=== PATIENT | female | born 1970 ===

== ENCOUNTER 2018-08-07 06:07 | Observation (INO) ==
--- NOTE | 2018-08-07 06:11 | Emergency Department Note ---
Disposition Clinical Impression: Chest pain Qualifiers: Chest pain type: unspecified Qualified Code(s): R07.9 - Chest pain, unspecified Disposition: Admitted As Inpatient Condition: Good Time of Disposition: 06:39 Chest Pain HPI - General Chief Complaint: ED Chest Pain Stated Complaint: CP Time Seen by Provider: 08/07/18 06:11 Source: patient Mode of arrival: ambulatory Limitations: no limitations Vital Signs Reviewed: Yes Nursing Notes Reviewed: Yes - History of Present Illness HPI Narrative: Patient is a 47-year-old female with past medical history of hypertension. Presents today due to concern for chest discomfort. She states that over the past week, she has had intermittent chest discomfort, described as a pressure in the center of her chest that feels like a squeezing sensation. She also has occasional left-sided chest discomfort described in the same way. She states that this pain usually lasts for minutes to hours at a time and goes away. It worsens with exertion. Does not worsen with deep inspiration. Denies any other fevers, sweating, vomiting, diarrhea, abdominal pain, dysuria, hematuria. She does admit to some mild nausea when she has these episodes. She states that she woke up this morning at 4 AM, had chest pain when awakening. She states that it was a 10 out of 10 on onset and is now a 6 out of 10. She took one 81 mg aspirin prior to arrival. Did not take any additional medication. She did state that it was worsening when she was walking. Denies any previous [place] or stent placement. Denies any long car rides, control use, any calf swelling or pain, previous DVT or PE. Severity scale (1-10): 6 - Related Data Allergies Allergy/AdvReac Type Severity Reaction Status Date / Time No Known Allergies Allergy Verified 08/07/18 06:10 All systems ED: reviewed and negative except as stated. Constitutional: Denies: fever Cardiovascular: Reports: chest pain Respiratory: Reports: dyspnea. Denies: cough, sputum production Gastrointestinal: Reports: nausea. Denies: abdominal pain, vomiting, diarrhea, constipation Genitourinary: Denies: urgency, dysuria Integumentary: Denies: rash Neurological: Denies: headache, weakness, numbness, paresthesias Chest Pain PMH - Past Medical History Medical history: Reports: hypertension Psychiatric history: Reports: no psych history - Social History Smoking Status: Never smoker Alcohol use: Reports: none Drug use: Reports: unknown Physical Exam - General Limitations: no limitations General appearance: alert, in no apparent distress - Head Head exam: atraumatic, normocephalic, normal inspection - Eye Eye exam: Present: normal appearance, PERRL, EOMI - ENT ENT exam: normal exam, normal oropharynx, mucous membranes moist - Neck Neck exam: Present: normal inspection, full ROM, trachea midline - Chest Chest inspection: Present: normal inspection, symmetric chest wall rise. Absent: tenderness, rash - Respiratory Respiratory exam: Present: normal lung sounds bilaterally. Absent: respiratory distress, stridor, accessory muscle use - Cardiovascular Cardiovascular exam: Present: regular rate, normal rhythm, normal heart sounds - Abdominal Exam Abdominal exam: Present: soft, Non-Tender. Absent: tenderness, distention, guarding, rebound, rigidity - Extremities Exam Extremities exam: Present: normal inspection, full ROM. Absent: tenderness, pedal edema - Neurological Exam Neurological exam: Present: alert, oriented X3 - Psychiatric Psychiatric exam: Present: normal affect, normal mood - Skin Skin exam: Present: warm, dry, intact, normal color Course Course Narrative: Patient was mildly hypertensive on presentation. Otherwise, the rest of the vitals within normal limits. Physical exam benign. She had no reproducible chest discomfort on exam, no rashes, no abdominal pain. Her EKG shows sinus rhythm with no acute ST elevation or depression. There is a T-wave inversion in lead 3. No previous EKG for comparison. With risk factors, moderately concerning story, and T-wave inversion on EKG, patient has a heart score for assuming the troponin is negative. Patient just had pain that started around 2 hours ago. We will cover the patient with the rest of the aspirin (3 tabs) and give fentanyl for pain control. We will obtain chest x-ray, troponin level. Even if workup is negative, we will admit for trending troponins. Will sign out to day team for follow up on labs and final disposition, signed out to Dr. Pinto and Dr. Garrett. Vital Signs Temperature 97.7 F 08/07/18 06:08 Pulse Rate 94 08/07/18 06:08 Respiratory Rate 20 08/07/18 06:08 Blood Pressure 162/90 08/07/18 06:08 O2 Sat by Pulse Oximetry 98 08/07/18 06:08 Temperature 97.7 F 08/07/18 06:08 Pulse Rate 94 08/07/18 06:08 Respiratory Rate 20 08/07/18 06:08 Blood Pressure 162/90 08/07/18 06:08 O2 Sat by Pulse Oximetry 98 08/07/18 06:08 Oxygen Delivery Oxygen Delivery Room Air Chest Pain - MDM Narrative Medical decision making narrative: Patient was mildly hypertensive on presentation. Otherwise, the rest of the vitals within normal limits. Physical exam benign. She had no reproducible chest discomfort on exam, no rashes, no abdominal pain. Her EKG shows sinus rhythm with no acute ST elevation or depression. There is a T-wave inversion in lead 3. No previous EKG for comparison. With risk factors, moderately concerning story, and T-wave inversion on EKG, patient has a heart score for assuming the troponin is negative. Patient just had pain that started around 2 hours ago. We will cover the patient with the rest of the aspirin (3 tabs) and give fentanyl for pain control. We will obtain chest x-ray, troponin level. Even if workup is negative, we will admit for trending troponins. Will sign out to day team for follow up on labs and final disposition, signed out to Dr. Pinto and Dr. Garrett. - Medical Records Medical records reviewed: Yes I reviewed the patient's medical records. - Lab Data Lab results reviewed: Yes I reviewed the patient's lab results. Result diagrams: 08/07/18 06:28 08/07/18 08:22 - Radiology Data Radiology results reviewed: Yes I reviewed the patient's radiology results. - EKG Data EKG attestation: Yes I reviewed and interpreted this EKG. EKG results narrative: 08/07/2018 at 06:18. Sinus rhythm. Rate 88. TX 157. QRS 99. QTc 441. Normal axis. No acute ST elevation or depression. T-wave inversion in lead 3. Heart Score - Score History: Moderately Suspicious EKG: Non Specific repolarisation Disturbance Age: 45-65 Risk Factors: 1-2 risk factors Troponin: Less than normal limit HEART Score Total: 4 S.B.A.R. - S.B.A.R. Situation: Demographics, MOA Background: Presenting Complaint, Relevant PMH, Meds, & Allergies Assessment: Vital Signs, Course and respsone to treatment, Exam Concerns, Patient/Family Expectation, Pertinant Lab Results Recommendation: Barrier(s) to disposition, Recommendation based on pending studies, treatments, or consults S.B.A.R. Report Given to: Dr. Garrett, Dr. Pinto Attestation Statement - Attestation Attestation: Dr. Darnell note: Patient was seen in conjunction with resident Dr. Cordova. Please see his charting for complete documentation. Assessment [id number] time with the patient and I agree with patient's treatment and disposition. Chest pain onset overnight which woke her up around 4 AM from sleep. Described as pressure. Denies such symptoms prior. Does admit to a lot of recent stress and anxiety due to the illness of a family member who is currently hospitalized. Pain-free at the time of my evaluation. EKG and troponin are unremarkable. Signed out to the day shift attending Dr. Vangie Garrett at 7 AM with pending admission and completely results.
[2018-08-07] MEDS ORDERED: Aspirin 81 MG TAB.CHEW PO ONE (06:22)
[2018-08-07] MEDS: *HR* FentaNYL (PF) 100 MCG/2 ML VIAL IVP ONE ×2 (06:41→13:56)
[2018-08-07] MEDS: Aspirin 81 MG TAB.CHEW PO ONE (06:41)
[2018-08-07 06:47] LABS: Basophils % 0.3 %; Eosinophils # 0.1 K/mcL (0.0-0.6); Hematocrit 40.7 % (35.3-44.9); Hemoglobin 13.5 g/dL (11.5-15.4); Immature Granulocytes % 0.2 % (0-4); Lymphocytes # 2.4 K/mcL (0.6-4.6); Lymphocytes % 26.5 %; Mean Corpuscular HGB Conc 33.2 g/dL (31.6-35.5); Mean Corpuscular Hemoglobin 31.8 pg (28.0-33.3); Mean Corpuscular Volume 95.8 fL (83.0-100.0); Mean Platelet Volume 8.8 fL (9.4-12.4); Monocytes # 0.7 K/mcL (0.0-1.3); Monocytes % 7.7 %; Neutrophils # 5.7 K/mcL (1.6-8.9); Platelet Count 385 K/mcL (140-400); Red Blood Count 4.25 M/mcL (3.82-4.97); Red Cell Distribution Width 13.1 % (11.5-14.5); Segmented Neutrophils % 64.3 %
[2018-08-07 07:00] LABS: Activated Partial Thrombo Time 31.6 Seconds (26.0-36.0)
--- NOTE | 2018-08-07 07:38 | Emergency Department Note ---
Disposition Clinical Impression: Chest pain Disposition: Admitted As Inpatient Condition: Good Time of Disposition: 12:00 General Adult HPI - General Chief complaint: ED Chest Pain Stated complaint: CP Time Seen by Provider: 08/07/18 06:11 Source: patient Mode of arrival: ambulatory Limitations: no limitations Nursing Notes Reviewed: Yes Vital Signs Reviewed: Yes - History of Present Illness Onset (ago): hour(s) Location: chest Pain Severity: moderate Pain Scale: 6 - Related Data Allergies Allergy/AdvReac Type Severity Reaction Status Date / Time No Known Allergies Allergy Verified 08/07/18 06:10 Constitutional: Denies: fever Cardiovascular: Reports: chest pain Respiratory: Reports: dyspnea. Denies: cough, sputum production Gastrointestinal: Reports: nausea. Denies: abdominal pain, vomiting, diarrhea, constipation Genitourinary: Denies: urgency, dysuria Integumentary: Denies: rash Neurological: Denies: headache, weakness, numbness, paresthesias Past Medical History - Past Medical History Medical history: Reports: hypertension Psychiatric history: Reports: no psych history - Social History Smoking Status: Never smoker Alcohol use: Reports: none Drug use: Reports: unknown Physical Exam - General Limitations: no limitations General appearance: alert, in no apparent distress Course Vital Signs Temperature 97.7 F 08/07/18 06:08 Pulse Rate 94 08/07/18 06:08 Respiratory Rate 20 08/07/18 06:08 Blood Pressure 162/90 08/07/18 06:08 O2 Sat by Pulse Oximetry 98 08/07/18 06:08 Temperature 97.7 F 08/07/18 06:08 Pulse Rate 88 08/07/18 09:23 Respiratory Rate 16 08/07/18 09:23 Blood Pressure 115/78 08/07/18 09:23 O2 Sat by Pulse Oximetry 98 08/07/18 09:23 Oxygen Delivery Oxygen Delivery Room Air Medical Decision Making - MDM Narrative Medical decision making narrative: Patient was signed out to me by Dr. Cordova as well as Dr. Darnell, patient brought in to the ER for chest pain symptoms, described to be a middle of the chest with intermittent radiation into the left arm. Symptoms are exertional. No medical history of ACS in the past, has has not had an echocardiogram or stress test in the past. While here in the ER, patient is remained stable. BMP, CBC as well as troponin of all been within normal limits. EKG shows no acute ischemic changes. Patient was given a total of 3 aspirin here in our ER, as she has had one aspirin prior to arrival, declined further pain medication. Patient has heart score 4. While here patient, we did describe lightheaded dizziness whenever she extends her neck, as well as whenever she flexes or turns her head to the left and right, she states she becomes very dizzy and lightheaded. This is been ongoing for the past week during when she has chest pain. Given this information, the patient will also receive a CTA of the head and neck. CT of the head and neck are unremarkable, no sign of vertebral aneurysm or dissection. Did discuss admission with the patient, she agrees with admission for ACS rule out at this point in time. She will be admitted for further observation and tr eatment. I will call hospitalist at this point in time. - Medical Records Medical records reviewed: Yes I reviewed the patient's medical records. - Lab Data Lab results reviewed: Yes I reviewed the patient's lab results. Result diagrams: 08/07/18 06:28 08/07/18 08:22 Lab Results 08/07/18 08/07/18 08/07/18 Range/Units 06:28 06:28 06:28 WBC 8.9 (4.3-11.1) K/mcL RBC 4.25 (3.82-4.97) M/mcL Hgb 13.5 (11.5-15.4) g/dL Hct 40.7 (35.3-44.9) % MCV 95.8 (83.0-100.0) fL MCH 31.8 (28.0-33.3) pg MCHC 33.2 (31.6-35.5) g/dL RDW 13.1 (11.5-14.5) % Plt Count 385 (140-400) K/mcL MPV 8.8 L (9.4-12.4) fL Immature Gran % 0.2 (0-4) % Seg Neutrophils % 64.3 % Lymphocytes % 26.5 % Monocytes % 7.7 % Eosinophils % 1.0 % Basophils % 0.3 % Neutrophils # 5.7 (1.6-8.9) K/mcL Lymphocytes # 2.4 (0.6-4.6) K/mcL Monocytes # 0.7 (0.0-1.3) K/mcL Eosinophils # 0.1 (0.0-0.6) K/mcL Basophils # 0.0 (0.0-0.2) K/mcL PT 11.0 (9.4-12.1) Seconds INR 1.0 APTT 31.6 (26.0-36.0) Seconds Sodium Cancelled Potassium Cancelled Chloride Cancelled Carbon Dioxide Cancelled BUN Cancelled Creatinine Cancelled Est GFR ( Amer) Cancelled Est GFR (Non-Af Amer) Cancelled BUN/Creatinine Ratio Cancelled Glucose Cancelled Calculated Osmolality Cancelled Calcium Cancelled Troponin I < 0.03 (< 0.04) ng/mL 08/07/18 Range/Units 08:22 WBC (4.3-11.1) K/mcL RBC (3.82-4.97) M/mcL Hgb (11.5-15.4) g/dL Hct (35.3-44.9) % MCV (83.0-100.0) fL MCH (28.0-33.3) pg MCHC (31.6-35.5) g/dL RDW (11.5-14.5) % Plt Count (140-400) K/mcL MPV (9.4-12.4) fL Immature Gran % (0-4) % Seg Neutrophils % % Lymphocytes % % Monocytes % % Eosinophils % % Basophils % % Neutrophils # (1.6-8.9) K/mcL Lymphocytes # (0.6-4.6) K/mcL Monocytes # (0.0-1.3) K/mcL Eosinophils # (0.0-0.6) K/mcL Basophils # (0.0-0.2) K/mcL PT (9.4-12.1) Seconds INR APTT (26.0-36.0) Seconds Sodium 141 Potassium 4.1 Chloride 106 Carbon Dioxide 28 BUN 15 Creatinine 0.68 Est GFR ( Amer) > 60 Est GFR (Non-Af Amer) > 60 BUN/Creatinine Ratio 22 Glucose 107 H Calculated Osmolality 293 Calcium 9.3 Troponin I (< 0.04) ng/mL - Radiology Data Radiology results reviewed: Yes I reviewed the patient's radiology results. Chest X-Ray 08/07/18 06:11 IMPRESSION: No acute cardiopulmonary disease or significant interval change from prior study 12/25/2012 D/ / Tru Sepulveda / Tru Sepulveda Interpreting Provider: Tru Sepulveda Sariah - Sariah Situation: Demographics, MOA Background: Presenting Complaint, Relevant PMH, Meds, & Allergies Assessment: Vital Signs, Course and respsone to treatment, Exam Concerns, Patient/Family Expectation, Pertinant Lab Results, Outstanding Labs Recommendation: Barrier(s) to disposition, Recommendation based on pending studies, treatments, or consults [facility] Report Given to: Dr. Bennie Rolle Repor Time: 12:00 (accepted) Attestation Statement - Attestation Attestation: Dr. Darnell note: Patient was seen in conjunction with resident Dr. Cordova. Please see his charting for complete documentation. Assessment [id number] time with the patient and I agree with patient's treatment and disposition. Patient had intermittent chest pain overnight which is a new symptom for her. Described as generalized pressure. No prior cardiac testing. Initial EKG and troponin are unremarkable. Pain was improved in the ER. Results pending at the time of departure from shift at 7 AM she will be signed out to the daytime attending jarrett Vences See
[2018-08-07 08:52] LABS: BUN/Creatinine Ratio 22 (6-26); Blood Urea Nitrogen 15 mg/dL (6-20); Calcium 9.3 mg/dL (8.6-10.3); Carbon Dioxide 28 mEq/L (23-29); Chloride 106 mEq/L (98-107); Glucose 107 mg/dL (70-105); Osmolality,Calculated 293 (280-300); Potassium 4.1 mEq/L (3.5-5.1); Sodium 141 mEq/L (136-145); eGFR For Non-African Americans > 60 (> 60)
--- NOTE | 2018-08-07 09:18 | Emergency Department Note ---
Disposition Clinical Impression: Chest pain Qualifiers: Chest pain type: unspecified Qualified Code(s): R07.9 - Chest pain, unspecified Disposition: Admitted As Inpatient Condition: Good Instructions: Chest Pain (ED) Referrals: NONE,PCP [Primary Care Provider] - Forms: ED Satisfaction Letter General Adult HPI - General Chief complaint: ED Chest Pain Stated complaint: CP Time Seen by Provider: 08/07/18 06:11 Source: patient Mode of arrival: ambulatory Limitations: no limitations - History of Present Illness Pain Scale: 6 - Related Data Allergies Allergy/AdvReac Type Severity Reaction Status Date / Time No Known Allergies Allergy Verified 08/07/18 06:10 Constitutional: Denies: fever Cardiovascular: Reports: chest pain Respiratory: Reports: dyspnea. Denies: cough, sputum production Gastrointestinal: Reports: nausea. Denies: abdominal pain, vomiting, diarrhea, constipation Genitourinary: Denies: urgency, dysuria Integumentary: Denies: rash Neurological: Denies: headache, weakness, numbness, paresthesias Past Medical History - Past Medical History Medical history: Reports: hypertension Psychiatric history: Reports: no psych history - Social History Smoking Status: Never smoker Alcohol use: Reports: none Drug use: Reports: unknown Physical Exam - General Limitations: no limitations General appearance: alert, in no apparent distress Course Vital Signs Temperature 97.7 F 08/07/18 06:08 Pulse Rate 94 08/07/18 06:08 Respiratory Rate 20 08/07/18 06:08 Blood Pressure 162/90 08/07/18 06:08 O2 Sat by Pulse Oximetry 98 08/07/18 06:08 Temperature 97.7 F 08/07/18 06:08 Pulse Rate 88 08/07/18 09:23 Respiratory Rate 16 08/07/18 09:23 Blood Pressure 115/78 08/07/18 09:23 O2 Sat by Pulse Oximetry 98 08/07/18 09:23 Oxygen Delivery Oxygen Delivery Room Air Medical Decision Making - Lab Data Result diagrams: 08/07/18 06:28 08/07/18 08:22 Lab Results 08/07/18 08/07/18 08/07/18 Range/Units 06:28 06:28 06:28 WBC 8.9 (4.3-11.1) K/mcL RBC 4.25 (3.82-4.97) M/mcL Hgb 13.5 (11.5-15.4) g/dL Hct 40.7 (35.3-44.9) % MCV 95.8 (83.0-100.0) fL MCH 31.8 (28.0-33.3) pg MCHC 33.2 (31.6-35.5) g/dL RDW 13.1 (11.5-14.5) % Plt Count 385 (140-400) K/mcL MPV 8.8 L (9.4-12.4) fL Immature Gran % 0.2 (0-4) % Seg Neutrophils % 64.3 % Lymphocytes % 26.5 % Monocytes % 7.7 % Eosinophils % 1.0 % Basophils % 0.3 % Neutrophils # 5.7 (1.6-8.9) K/mcL Lymphocytes # 2.4 (0.6-4.6) K/mcL Monocytes # 0.7 (0.0-1.3) K/mcL Eosinophils # 0.1 (0.0-0.6) K/mcL Basophils # 0.0 (0.0-0.2) K/mcL PT 11.0 (9.4-12.1) Seconds INR 1.0 APTT 31.6 (26.0-36.0) Seconds Sodium Cancelled Potassium Cancelled Chloride Cancelled Carbon Dioxide Cancelled BUN Cancelled Creatinine Cancelled Est GFR ( Amer) Cancelled Est GFR (Non-Af Amer) Cancelled BUN/Creatinine Ratio Cancelled Glucose Cancelled Calculated Osmolality Cancelled Calcium Cancelled Troponin I < 0.03 (< 0.04) ng/mL 08/07/18 Range/Units 08:22 WBC (4.3-11.1) K/mcL RBC (3.82-4.97) M/mcL Hgb (11.5-15.4) g/dL Hct (35.3-44.9) % MCV (83.0-100.0) fL MCH (28.0-33.3) pg MCHC (31.6-35.5) g/dL RDW (11.5-14.5) % Plt Count (140-400) K/mcL MPV (9.4-12.4) fL Immature Gran % (0-4) % Seg Neutrophils % % Lymphocytes % % Monocytes % % Eosinophils % % Basophils % % Neutrophils # (1.6-8.9) K/mcL Lymphocytes # (0.6-4.6) K/mcL Monocytes # (0.0-1.3) K/mcL Eosinophils # (0.0-0.6) K/mcL Basophils # (0.0-0.2) K/mcL PT (9.4-12.1) Seconds INR APTT (26.0-36.0) Seconds Sodium 141 Potassium 4.1 Chloride 106 Carbon Dioxide 28 BUN 15 Creatinine 0.68 Est GFR ( Amer) > 60 Est GFR (Non-Af Amer) > 60 BUN/Creatinine Ratio 22 Glucose 107 H Calculated Osmolality 293 Calcium 9.3 Troponin I (< 0.04) ng/mL Attestation Statement - Attestation Attestation: I examined this patient and my medical decision-making was reviewed with the Resident Physician. I agree with the documented findings, disposition and treatment plan as described except to the extent set forth below. Patient was signed out pending workup. EKG unremarkable. Troponin negative. When I evaluated the patient she does complain of some pain in the back of her neck and some dizziness when she extends her neck backwards. We will check a CTA. Admitted to medicine. CTA head and neck are unremarkable. Patient is admitted for further cardiac workup. Chest X-Ray 08/07/18 06:11 IMPRESSION: No acute cardiopulmonary disease or significant interval change from prior study 12/25/2012 D/ / Tru Sepulveda / Tru Sepulveda Interpreting Provider: Tru Sepulveda Head CTA 08/07/18 09:24 IMPRESSION: 1. No acute intracranial abnormality. 2. Unremarkable CTA of the head. D/ / 08/07/2018 11:30:35 Quita Betancur MD / nessa Interpreting Provider: Quita Betancur MD Neck CTA 08/07/18 09:24 IMPRESSION: Unremarkable CTA of the neck. D/ / Analia Simental MD / Analia Simental MD Interpreting Provider: Analia Simental MD
[2018-08-07] MEDS ORDERED: Isovue-370 500 ML BOTTLE IVP ONE (09:24)
[2018-08-07] MEDS ORDERED: Ibuprofen 600 MG TABLET PO ONE (11:06)
[2018-08-07] MEDS ORDERED: Ondansetron ODT 4 MG TAB.RAPDIS SL ONE (11:06)
[2018-08-07] MEDS ORDERED: MOM Conc 10 ML UD.LIQ PO PRN (15:53)
[2018-08-07] MEDS ORDERED: Ondansetron ODT 4 MG TAB.RAPDIS SL PRN (15:53)
[2018-08-07] MEDS ORDERED: Naloxone 0.4 MG/ML INJ IVP PRN (15:53)
[2018-08-07] MEDS ORDERED: traMADol 50 MG TABLET PO PRN (15:53)
[2018-08-07] MEDS ORDERED: *HR* Promethazine 25 MG/ML VIAL IVP PRN (15:53)
--- NOTE | 2018-08-07 15:58 | Internal Med History&Physical ---
Date of Encounter: 08/07/18 Time of Encounter: 15:56 Internal Medicine - H&P: HPI Admitted From: Home Plans for Post Hospital Care: Home History of present illness: Patient is a 47-year-old female with past medical history of hypertension. Presents today due to concern for chest discomfort. She states that over the past week, she has had intermittent chest discomfort, described as a pressure in the center of her chest that feels like a squeezing sensation. She also has occasional left-sided chest discomfort described in the same way. She states that this pain usually lasts for minutes to hours at a time and goes away. It worsens with exertion. Does not worsen with deep inspiration. Denies any other fevers, sweating, vomiting, diarrhea, abdominal pain, dysuria, hematuria. She does admit to some mild nausea when she has these episodes. She states that she woke up this morning at 4 AM, had chest pain when awakening. She states that it was a 10 out of 10 on onset and is now a 6 out of 10. She took one 81 mg aspirin prior to arrival. Did not take any additional medication. She did state that it was worsening when she was walking. Denies any previous MA or stent placement. Denies any long car rides, control use, any calf swelling or pain, previous DVT or PE. In the ED, vitals were stable, Labs unremarkable including negative troponin. EKG normal sr without st-t changes. CTA head and neck unremarkable. Pt is admitted for further evaluation. Code status will be full code per discussion with pt. Past Med Surg Social Fam HX - Past Medical History Medical history: hypertension Psychiatric history: no psych history - Past Surgical History Additional surgical history: tubal ligation - Social History Smoking Status: Never smoker Alcohol use: none Drug use: unknown - Family History Mother Living Status: Still Living Hx Family Cardiac Disorders: No Hx Family Respiratory Disorders: No Hx Family Cancer: Yes (ovary) Hx Family GI Disorders: No Hx Family Endocrine Disorder: No Hx Family Musculoskeletal Disorders: No Hx Family Neuromuscular Disorders: No Hx Family Neurologic Disorders: No Hx Family HEENT Disorders: No Hx Family Autoimmune Disorders: No Hx Family Reproductive Disorders: No Hx Family Psychosocial Disorders: No Father Living Status: Still Living Hx Family Cardiac Disorders: Yes Hx Family Respiratory Disorders: Yes Hx Family Cancer: Yes (espogeal) Hx Family GI Disorders: Yes Hx Family Endocrine Disorder: Yes Hx Family Musculoskeletal Disorders: Yes Internal Medicine - H&P: Meds Allergy/AdvReac Type Severity Reaction Status Date / Time No Known Allergies Allergy Verified 08/07/18 06:10 All Systems PM: A 10-system review of systems was performed and is negative for pertinent findings except as documented above in the HPI. Review of systems: REVIEW OF SYSTEMS: CONSTITUTIONAL: No weight loss, fever, chills, weakness or fatigue. HEENT: Eyes: No visual loss, blurred vision, double vision or yellow sclerae. Ears, Nose, Throat: No hearing loss, sneezing, congestion, runny nose or sore throat. SKIN: No rash or itching. CARDIOVASCULAR: see HPI. RESPIRATORY: No shortness of breath, cough or sputum. GASTROINTESTINAL: No anorexia, nausea, vomiting or diarrhea. No abdominal pain or blood. GENITOURINARY: No dysuria, urgency, or frequency. NEUROLOGICAL: No headache, dizziness, syncope, paralysis, ataxia, numbness or tingling in the extremities. No change in bowel or bladder control. MUSCULOSKELETAL: No muscle, back pain, joint pain or stiffness. HEMATOLOGIC: No anemia, bleeding or bruising. LYMPHATICS: No enlarged nodes. No history of splenectomy. PSYCHIATRIC: No history of depression or anxiety. ENDOCRINOLOGIC: No reports of sweating, cold or heat intolerance. No polyuria or polydipsia. - Constitutional Vitals: Temp Pulse Resp BP Pulse Ox 98.1 F 83 18 119/76 96 08/07/18 15:20 08/07/18 15:20 08/07/18 15:20 08/07/18 15:20 08/07/18 15:20 General appearance: Present: A&O X 3 Exam: PHYSICAL EXAMINATION: GENERAL APPEARANCE: The patient is alert, oriented and in no acute distress. HEENT: Head is normocephalic. The sinuses are nontender. Pupils are equal and reactive. The nares are patent. Oropharynx clear without lesions. NECK: Supple without lymphadenopathy. HEART: Regular rate and rhythm. LUNGS: No crackles or wheezes are heard. ABDOMEN: Soft, nontender, nondistended with good bowel sounds heard. Inguinal area is normal. EXTREMITIES: Without cyanosis, clubbing or edema. NEUROLOGICAL: Gross nonfocal. SKIN: Warm and dry without any rash. Internal Med - H&P Results - Labs CBC & Chem 7: 08/07/18 06:28 08/07/18 08:22 Labs: Short CBC 08/07/18 Range/Units 06:28 WBC 8.9 (4.3-11.1) K/mcL Hgb 13.5 (11.5-15.4) g/dL Hct 40.7 (35.3-44.9) % Plt Count 385 (140-400) K/mcL Neutrophils # 5.7 (1.6-8.9) K/mcL BMP 08/07/18 08/07/18 06:28 08:22 Sodium Cancelled 141 Potassium Cancelled 4.1 Chloride Cancelled 106 Carbon Dioxide Cancelled 28 BUN Cancelled 15 Creatinine Cancelled 0.68 Glucose Cancelled 107 H Calcium Cancelled 9.3 Cardiac Enzymes 08/07/18 Range/Units 06:28 Troponin I < 0.03 (< 0.04) ng/mL - Impressions ITS Impressions Chest X-Ray 08/07/18 06:11 IMPRESSION: No acute cardiopulmonary disease or significant interval change from prior study 12/25/2012 D/ / Tru Sepulveda / Tru Sepulveda Interpreting Provider: Tru Sepulveda Head CTA 08/07/18 09:24 IMPRESSION: 1. No acute intracranial abnormality. 2. Unremarkable CTA of the head. D/ / 08/07/2018 11:30:35 Quita Betancur MD / nessa Interpreting Provider: Quita Betancur MD Neck CTA 08/07/18 09:24 IMPRESSION: Unremarkable CTA of the neck. D/ / Analia Simental MD / Analia Simental MD Interpreting Provider: Analia Simental MD - Assessment and Plan (1) Chest pain Current Visit: Yes Status: Acute Assessment and plan: 47 year old female presented with chest pain. Continue cycling troponin, tele monitoring, EKG as needed. Stress test and echo in the morning. 1 Qualifiers: Chest pain type: unspecified Qualified Code(s): R07.9 - Chest pain, unspecified (2) DVT prophylaxis Current Visit: Yes Status: Acute Assessment and plan: SCD - Time Spent With Patient Total time spent is greater than 50% in coordination of care (as documented) at patient's floor/unit and/or counseling patient: Greater than 35 minutes
[2018-08-07] MEDS: Acetaminophen 325 MG TABLET PO PRN ×2 (16:31→23:35)
--- NOTE | 2018-08-07 17:53 | Electrocardiograph Report ---
[address] [address] Test Date: 2018-08-07 Pat Name: Sarahi Peraza Department: EXAM1 Room: 3B54 Gender: F Terrazzo Roller: : 1970 Requested By: Desmond Cordova Order Number: [id number] Reading MD: Ni Berkowitz Measurements Intervals [place] Rate: 88 P: 67 LA: 157 QRS: 60 QRSD: 99 T: 0 QT: 364 QTc: 441 Interpretive Statements Sinus rhythm Consider right atrial enlargement Low voltage, precordial leads Electronically Signed On 08-07-2018 17:51:50 EDT by Ni Berkowitz
[2018-08-08 04:13] LABS: Basophils % 0.5 %; Eosinophils # 0.2 K/mcL (0.0-0.6); Hemoglobin 12.1 g/dL (11.5-15.4); Immature Granulocytes % 0.3 % (0-4); Lymphocytes # 2.9 K/mcL (0.6-4.6); Mean Corpuscular HGB Conc 32.7 g/dL (31.6-35.5); Mean Corpuscular Hemoglobin 31.5 pg (28.0-33.3); Mean Corpuscular Volume 96.4 fL (83.0-100.0); Mean Platelet Volume 8.6 fL (9.4-12.4); Monocytes # 0.6 K/mcL (0.0-1.3); Monocytes % 7.9 %; Neutrophils # 4.1 K/mcL (1.6-8.9); Platelet Count 331 K/mcL (140-400); Red Blood Count 3.84 M/mcL (3.82-4.97); Red Cell Distribution Width 13.2 % (11.5-14.5); Segmented Neutrophils % 52.3 %
[2018-08-08 04:30] LABS: BUN/Creatinine Ratio 24 (6-26); Blood Urea Nitrogen 17 mg/dL (6-20); Calcium 9.1 mg/dL (8.6-10.3); Carbon Dioxide 25 mEq/L (23-29); Chloride 105 mEq/L (98-107); Cholesterol 147 mg/dL (< 200); Glucose 99 mg/dL (70-105); HDL Cholesterol 49 mg/dL (40-59); LDL Cholesterol,Calculated 86 mg/dL (0-99); Osmolality,Calculated 290 (280-300); Potassium 4.2 mEq/L (3.5-5.1); Sodium 139 mEq/L (136-145); Triglycerides 59 mg/dL (< 150); eGFR For Non-African Americans > 60 (> 60)
[2018-08-08] MEDS: Aspirin 81 MG TAB.CHEW PO ONE (08:33)
[2018-08-08] MEDS: Acetaminophen 325 MG TABLET PO PRN (08:36)
[2018-08-08] MEDS ORDERED: Aspirin 81 MG TAB.CHEW PO SCH (09:00)
--- NOTE | 2018-08-08 14:20 | Internal Med Progress Note ---
Hospitalist Progress Note - Encounter Date of Encounter: 08/08/18 Time of Encounter: 14:18 - Subjective Interval History: Pt seen and examined in the room. She has no chest pain currently. - Exam Vitals: Temp Pulse Resp BP Pulse Ox 98.2 F 70 20 117/79 97 08/08/18 11:36 08/08/18 11:36 08/08/18 11:36 08/08/18 11:36 08/08/18 11:36 Exam: PHYSICAL EXAMINATION: GENERAL APPEARANCE: The patient is alert, oriented and in no acute distress. HEENT: Head is normocephalic. The sinuses are nontender. Pupils are equal and reactive. The nares are patent. Oropharynx clear without lesions. NECK: Supple without lymphadenopathy. HEART: Regular rate and rhythm. LUNGS: No crackles or wheezes are heard. ABDOMEN: Soft, nontender, nondistended with good bowel sounds heard. Inguinal area is normal. EXTREMITIES: Without cyanosis, clubbing or edema. NEUROLOGICAL: Gross nonfocal. SKIN: Warm and dry without any rash. - Assessment and Plan (1) Chest pain Current Visit: Yes Status: Acute Assessment and Plan: 47 year old female presented with chest pain. troponin negative. tele no acute st-t changes. Pending stress test and echo. (2) DVT prophylaxis Current Visit: Yes Status: Acute Assessment and Plan: SCD - Time Spent with Patient Total time spent is greater than 50% in coordination of care (as documented) at patient's floor/unit and/or counseling patient: Greater than 35 minutes Plan of Care Discussed with: patient Internal Medicine: Result - Labs CBC & Chem 7: 08/08/18 03:57 08/08/18 03:57 Labs: Short CBC 08/08/18 Range/Units 03:57 WBC 7.8 (4.3-11.1) K/mcL Hgb 12.1 (11.5-15.4) g/dL Hct 37.0 (35.3-44.9) % Plt Count 331 (140-400) K/mcL Neutrophils # 4.1 (1.6-8.9) K/mcL BMP 08/08/18 03:57 Sodium 139 Potassium 4.2 Chloride 105 Carbon Dioxide 25 BUN 17 Creatinine 0.72 Glucose 99 Calcium 9.1 Cardiac Enzymes 08/07/18 08/07/18 Range/Units 16:13 21:35 Troponin I < 0.03 < 0.03 (< 0.04) ng/mL - ABG Interpretation ABG results: PT/INR, D-dimer PT 11.0 Seconds (9.4-12.1) 08/07/18 06:28 Consult Discharge Plan - Plan Referrals: Consuelo Acevedo, ADMISSIONS CONSULTANT [Advanced Practice Nurse] - 08/14/18 10:00 am (1) Chest pain Qualifiers: Chest pain type: unspecified Qualified Code(s): R07.9 - Chest pain, unspecified
--- NOTE | 2018-08-09 11:44 | Discharge Summary ---
- NOTES TO OUTPATIENT PROVIDER Notes to Outpatient Provider: f/u with PCP within a week. Orders not resulted at time of discharge: Pending orders 08/08/18 08:00 NM sparkle perf SPECT multi [NM] Routine Date of Encounter: 08/09/18 Time of Encounter: 11:41 - Discharge Diagnosis (1) Chest pain Priority: Primary Status: Acute Qualifiers: Chest pain type: unspecified Qualified Code(s): R07.9 - Chest pain, unspecified (2) DVT prophylaxis Priority: Primary Status: Acute Hospital course: Patient is a 47-year-old female with past medical history of hypertension. Presents today due to concern for chest discomfort. She states that over the past week, she has had intermittent chest discomfort, described as a pressure in the center of her chest that feels like a squeezing sensation. She also has occasional left-sided chest discomfort described in the same way. She states that this pain usually lasts for minutes to hours at a time and goes away. It worsens with exertion. Does not worsen with deep inspiration. Denies any other fevers, sweating, vomiting, diarrhea, abdominal pain, dysuria, hematuria. She does admit to some mild nausea when she has these episodes. She states that she woke up this morning at 4 AM, had chest pain when awakening. She states that it was a 10 out of 10 on onset and is now a 6 out of 10. She took one 81 mg aspirin prior to arrival. Did not take any additional medication. She did state that it was worsening when she was walking. Denies any previous MD or stent placement. Denies any long car rides, control use, any calf swelling or pain, previous DVT or PE. In the ED, vitals were stable, Labs unremarkable including negative troponin. EKG normal sr without st-t changes. CTA head and neck unremarkable. Pt is admitted for further evaluation. Stress test and echo were performed and both are unremarkable. She is discharged home today, f/u with pcp within a week. Discharge discussed with: patient Time spent discussing smoking cessation with patient: more than 10 minutes - Time Spent with Patient Total time spent providing and/or coordinating discharge services: Time spent: Greater than 30 minutes - Discharge Medications Prescriptions: Continue Lisinopril [Zestril] 5 mg PO DAILY hydroCHLOROthiazide [Hydrochlorothiazide] 12.5 mg PO DAILY Cetirizine HCl [24Hour Allergy] 10 mg PO DAILY Fluticasone Propionate Nasal [Flonase] 2 spr NS DAILY raNITIdine HCl [Zantac] 150 mg PO BID PRN PRN Reason: Heartburn Multivit with Calcium,Iron,Min [One Daily Women's] 1 each PO DAILY Multivitamin/Folic Acid/Biotin [Hair, Skin and Nails Tablet] 1 each PO DAILY Home Medications: Cetirizine HCl [24Hour Allergy] 10 mg PO DAILY 08/08/18 [History] Fluticasone Propionate Nasal [Flonase] 2 spr NS DAILY 08/08/18 [History] Lisinopril [Zestril] 5 mg PO DAILY 08/08/18 [History] Multivit with Calcium,Iron,Min [One Daily Women's] 1 each PO DAILY 08/08/18 [History] Multivitamin/Folic Acid/Biotin [Hair, Skin and Nails Tablet] 1 each PO DAILY 08/08/18 [History] hydroCHLOROthiazide [Hydrochlorothiazide] 12.5 mg PO DAILY 08/08/18 [History] raNITIdine HCl [Zantac] 150 mg PO BID PRN 08/08/18 [History] Allergies/Adverse Reactions: Allergy/AdvReac Type Severity Reaction Status Date / Time No Known Allergies Allergy Verified 08/08/18 08:24 Date of admission: 08/07/18 12:42 Primary care physician: PCP NONE Anticipated date of discharge: 08/09/18 - Constitutional Vitals: Temp Pulse Resp BP Pulse Ox 97.9 F 103 18 133/77 96 08/09/18 11:20 08/09/18 11:20 08/09/18 11:20 08/09/18 11:20 08/09/18 11:20 General appearance: Present: A&O X 3 Exam: PHYSICAL EXAMINATION: GENERAL APPEARANCE: The patient is alert, oriented and in no acute distress. HEENT: Head is normocephalic. The sinuses are nontender. Pupils are equal and reactive. The nares are patent. Oropharynx clear without lesions. NECK: Supple without lymphadenopathy. HEART: Regular rate and rhythm. LUNGS: No crackles or wheezes are heard. ABDOMEN: Soft, nontender, nondistended with good bowel sounds heard. Inguinal area is normal. EXTREMITIES: Without cyanosis, clubbing or edema. NEUROLOGICAL: Gross nonfocal. SKIN: Warm and dry without any rash. - Patient Status Disposition: Home, Self-Care Condition: Good Functional capacity at discharge: independent ambulation Overall status at discharge: patient is progressing back to baseline - Discharge Instructions Follow Up With: Consuelo Acevedo CHEMISTRY ASSOCIATE [Advanced Practice Nurse] - 08/14/18 10:00 am - Diet and Activity Activity: increase activity as tolerated Diet: low fat, low cholesterol, low salt diet
[2018-08-09 12:26] VITALS: BP 149/67
== END 2018-08-09 13:43 | disposition home or self-care (01) ==
LOC: 3BNU 06:07 → EMEROOARM 06:07 → 3BNU 13:55
PROVIDERS: ADMIT Internal Medicine Nephrology; ATTEND Internal Medicine Nephrology